=== PATIENT | female | born 1990 | race African-American/Black ===

== ENCOUNTER 2018-06-04 18:36 | Emergency (ER) | payer OTHER ==
[~2018-06-04] VITALS: Ht 165.1 cm; Wt 68.2 kg
[2018-06-04] MEDS ORDERED: TRAM50TA4 PO (18:47)
[2018-06-04 21:37] VITALS: BP 119/79
== END 2018-06-04 21:38 | disposition home or self-care (01) ==
LOC: EMS 18:37
DX: S09.90XA Unspecified injury of head, initial encounter (principal); J06.9 Acute upper respiratory infection, unspecified; Z79.899 Other long term (current) drug therapy; W22.8XXA Striking against or struck by other objects, initial encounter; Y93.89 Activity, other specified; Y92.89 Other specified places as the place of occurrence of the external cause; Y99.8 Other external cause status
CPT/HCPCS: 99281